=== PATIENT | female | born 1945 | race Caucasian/White ===

== ENCOUNTER 2019-01-30 08:38 | Inpatient (IN) | payer OTHER ==
[2019-01-23 09:16] LABS: URINE BILIRUBIN NEGATIVE (Negative); URINE BLOOD NEGATIVE (Negative); URINE CLARITY CLEAR; URINE COLOR YELLOW; URINE GLUCOSE-RANDOM* NEGATIVE (Negative); URINE KETONES NEGATIVE (Negative); URINE LEUKOCYTES-REFLEX NEGATIVE (Negative); URINE NITRITE-REFLEX NEGATIVE (Negative); URINE PROTEIN (DIPSTICK) NEGATIVE (Negative); URINE SPECIFIC GRAVITY <= 1.005 (1.005-1.035); URINE UROBILINOGEN 0.2 E.U./dl (0.2-1.0)
[2019-01-23 09:28] LABS: HEMATOCRIT 43.5 % (37.0-47.0); HEMOGLOBIN 14.2 gm/dL (12.0-15.0); MCH 28.8 pg (26.0-34.0); MCHC 32.7 g/dL (28.0-37.0); RBC 4.94 mil/uL (4.20-5.00); RDW 13.8 % (10.5-14.5)
[2019-01-23 09:32] LABS: CALCIUM 10.3 mg/dL (8.5-10.1); CREATININE 0.6 mg/dL (0.6-1.0); POTASSIUM 4.4 mmol/L (3.5-5.1)
[~2019-01-30] VITALS: Ht 149.9 cm; Wt 60.3 kg
[~2019-01-30 08:38] MED LIST: ADVIL200 M1 PO; ASPIR 8181 M1 PO; BLACK COHOSH40 MG PO; CALCIUM CITRAT200 MG PO; GINKGO BILOBA40 MG PO; MULTI VITAMIN1 EACH PO; NYQUIL; OMEGA 3 FISH O1 EACH PO; REFRESH TEARS15 ML OPHTHALMIC; TURMERIC500 M2 PO
[2019-01-30 13:34] VITALS: BP 143/73
--- NOTE | 2019-01-30 18:30 | NUR ---
PT RECEIVED FROM THER REC AT 1745 ALERT AND IN NO PAIN. ASSESSMENT COMPLETED. IV FLUIDS INFUSING. RT NING DSNG DRY. POLAR ANTOINETTE IN PLACE. PT INFORMED TO CALL TO USE BSC. DENIES PAIN. EATING AND DRINKING.
[2019-01-30 20:43] VITALS: BP 124/63
--- NOTE | 2019-01-30 23:29 | NUR ---
Assumed pt care at 1900. Pt A/OX4,VSS denies pain on assessment polar pack in place. NING dsg C/D/I right knee. Pt is with assist of 1 RW/GB,WBAT,voiding w/o difficulty. Fall safety education reinforced and pt is compliant. Fall precautions in place. Pt resting quietly with no distress noted will continue to monitor pt.
[2019-01-31 05:52] LABS: HEMATOCRIT 36.1 % (37.0-47.0); MCH 29.4 pg (26.0-34.0); MCHC 33.3 g/dL (28.0-37.0); MCV 88.2 fL (80.0-100.0); RBC 4.09 mil/uL (4.20-5.00); RDW 13.8 % (10.5-14.5); WBC 10.5 thou/uL (4.0-11.0)
[2019-01-31 05:53] VITALS: BP 101/63
--- NOTE | 2019-01-31 08:54 | NUR ---
INITIAL ASSESSMENT: Pt evaluated for d/c planning needs. Reviewed chart and spoke with nurse and pt. Pt is alert and oriented. Pt lives in house with spouse and was independent with ADL's prior to admission to the hospital. Pt has cane at home. Pt has not had home health in the past. Will order walker for home use. Pt has scheduled outpatient physical therapy. Will remain available to assist as needed.
[2019-01-31] MEDS ORDERED: ASPIR 8181 M1 PO (10:39)
[2019-01-31] MEDS ORDERED: NEURONTIN 300300 M1 PO (10:39)
[2019-01-31 13:23] VITALS: BP 101/63
[2019-01-31 14:49] VITALS: BP 101/63
--- NOTE | 2019-01-31 14:53 | NUR ---
DISCHARGE PAPERS GONE OVER WITH PATIENT SIGNED AND COPY IN CHART. IV ACSESS DCD RX GIVEN TO PATIENT POLAR ANTOINETTE AND PICCO INFO GIVEN TO PATIENT. ALL BELONGINGS PACKED AND SENT WITH PATIENT. NO PAIN OR RESP DISTRESS AT DISCHARGE
--- NOTE | 2019-02-14 12:13 | O ---
[facility] [place] [address] OPERATIVE REPORT Name: PILAR SCALES Room #: 439-P [facility] M.R.#: [id number] Admission: 01/30/19 Attend Phys: Giorgio Vazquez MD Discharge: 01/31/19 Date of : 49 Report #: [id number] THIS REPORT FOR: //name// CC: Anju Lolita Vazquez DATE OF SERVICE: 01/30/2019 PREOPERATIVE DIAGNOSIS: Right knee osteoarthritis. POSTOPERATIVE DIAGNOSIS: Right knee osteoarthritis. PROCEDURE: Right total knee arthroplasty using Navio robotic assistance. SURGEON: Giorgio Vazquez MD. CARDIOVASCULAR TECH: Darling Constantino PA-C. INDICATIONS FOR CARDIOVASCULAR TECH: Throughout the case, extensive retraction and manipulation of the knee was required. This was afforded to me by my assistant spa director. ANESTHESIA: LMA. IMPLANTS: [employer]hew size 4 narrow Legion cobalt chrome posterior stabilized femur, size 2 tibia, size 9 highly constrained polyethylene, size 32 patella. TOURNIQUET TIME: 53 minutes. ESTIMATED BLOOD LOSS: 25 mL. COMPLICATIONS: None. SPECIMENS: None. CONDITION UPON LEAVING THE OPERATING ROOM: Stable. INDICATIONS FOR PROCEDURE: The patient is a 73-year-old female with severe right knee osteoarthritis. She had failed conservative measures for this and after discussion with her, she elected for right total knee arthroplasty. DESCRIPTION OF PROCEDURE: Risks, benefits, alternatives, complications were discussed in detail with the patient including but not limited to risk of anesthesia, risk of damage to nerves, arteries, blood vessels, risk for infection, bleeding, risk for continued knee pain, need for reoperation. Informed consent was obtained from the patient. Right knee was appropriately [facility] [address] [place] [address] OPERATIVE REPORT Name: PILAR SCALES Room #: 439[facility] M.R.#: [id number] Admission: 01/30/19 Attend Phys: Giorgio Vazquez MD Discharge: 01/31/19 Date of : 49 Report #: [id number] marked in the preoperative holding area. IV Ancef was given for preoperative antibiotics. She was brought to the operating room and placed in supine position on operating room table. LMA anesthesia was induced without complication. Tourniquet was placed on the right thigh. Right lower extremity was prepped and draped in normal sterile fashion. Timeout was performed properly identifying the patient and procedure as well as instrumentation. All in the operating room were in agreement. Right lower extremity was exsanguinated, tourniquet was inflated. Tourniquet time was 53 minutes. Standard midline approach to knee was made with 10-blade through the skin. Dissection was taken down sharply to the fascia and deep flaps were developed medially and laterally. Fresh 10-blade was used to make a medial parapatellar arthrotomy and the knee was inspected. There was severe medial compartment osteoarthritis with ytextxxn-ke-rtpmxa patellofemoral arthritis. ACL and PCL were removed sharply. Reference pins were placed in the femur and the tibia and the knee was digitally mapped using the Navio robotic system. Intraoperative plan was made and we sized a size 4 femur, a size 2 tibia with a size 10 spacer. After acceptance of the intraoperative plan, the distal femoral cut was made with a Navio bur. The 4-in-1 cutting block was placed. Anterior, posterior and chamfer cuts were made on the femur. Attention was then turned to the tibia. The tibial resection guide was pinned in place using the Navio for placement and tibial resection was made. After this, the remainder of the menisci removed with Bovie cautery. Medial osteophytes were removed from the tibia. Flexion and extension gaps were checked and found to have tightness medially, both in flexion and extension and limited medial release was performed using the pie crust technique. This balanced the knee well in flexion and extension. Tibia was sized, found to be a size 2. A size 2 tibial trial was placed, pinned and punched. Size 4 femoral trial was placed and the box cut was made. This was then trialed with a size 9 polyethylene. Knee was taken through range of motion, found to have good balance medially with 3-4 mm of laxity laterally in full extension into 30 degrees of flexion. It was felt that we could make up for this with a highly constrained liner. A 9 mm was then resected from the posterior surface of the patella and a size 32 patellar trial button was placed. Knee was taken through range of motion, found to be stable, found to have good patellar tracking. After this, trial components were removed. Bony ends were thoroughly irrigated with normal saline. A final size 2 tibia, size 4 Legion cobalt chrome posterior stabilized femur and a size 32 patella were cemented in place using standard cementation techniques. While the cement cured, a periarticular injection consisting of morphine, ropivacaine, epinephrine and Toradol was placed around the knee joint capsule. After the cement cured, the tourniquet was deflated. Hemostasis was obtained with Bovie cautery. A final size 9 highly constrained polyethylene was placed. A gram of vancomycin was placed deep in the joint. Fascia was closed with 0 Vicryl, skin was closed with 2-0 Vicryl, 3-0 Monocryl. Dermabond and a NING dressing was applied. The [address] [address] OPERATIVE REPORT Name: PILAR SCALES Room #: 439[facility] M.R.#: [id number] Admission: 01/30/19 Attend Phys: Giorgio Vazquez MD Discharge: 01/31/19 Date of : 49 Report #: [id number] patient tolerated this procedure well and went to recovery room under care of anesthesia postoperatively. <ELECTRONICALLY SIGNED> By: Giorgio Vazquez MD 02/14/19 [id number] Giorgio Vazquez MD /nt
== END 2019-01-31 15:15 | disposition home or self-care (01) | DRG 470 ==
LOC: PRE 08:38 → 4S 12:50 → TBA 12:50 → PRE 15:11 → 4S 18:33 → ENTRNSPT 01-31 14:50 → EDTRNSPTSTS 01-31 14:52 → 4S 01-31 15:15
PROVIDERS: ADMIT Orthopaedic Surgery
DX: M17.11 Unilateral primary osteoarthritis, right knee (principal)
CPT/HCPCS: 10102; 50010; 50101; 50415; 50954; 51130; 51225; 51320; 51771; 52001; 52282; 53000; 53078; 53364; 54118; 56527; 56528; 57095; 57103; 57110; 57127; 57179; 62110; 62900; 64043; 65060; 70005